=== PATIENT | female | born 1980 | race Caucasian/White ===

== ENCOUNTER 2018-06-24 04:27 | Emergency (ER) | payer OTHER ==
[~2018-06-24] VITALS: Ht 170.2 cm; Wt 97.7 kg
[2018-06-24 04:45] LABS: GLUCOSE,POINT OF CARE > 600 MG/DL (70-110)
[2018-06-24] MEDS ORDERED: AMLO2.5T4 PO (04:45)
[2018-06-24] MEDS ORDERED: FURO40I IM (04:45)
[2018-06-24] MEDS ORDERED: LISI-660 PO (04:45)
[2018-06-24] MEDS ORDERED: INSULIN SQ (04:45)
[2018-06-24 05:07] LABS: BASOPHILS % (AUTO) 1.2 % (0.0-2.0); EOSINOPHILS % (AUTO) 1.2 % (1.0-6.0); HEMATOCRIT 42.3 % (36-46); HEMOGLOBIN 14.9 g/dL (12.0-16.0); LYMPHOCYTES # (AUTO) 2.3 K/uL (1.0-4.8); LYMPHOCYTES % (AUTO) 26.5 % (22.0-44.0); MEAN CORPUSCULAR HEMOGLOBIN 31.1 pg (26.0-34.0); MEAN CORPUSCULAR HGB CONC 35.2 G/dL (31.0-37.0); MEAN CORPUSCULAR VOLUME 88 fL (80-100); MONOCYTES # (AUTO) 0.6 K/uL (0.1-1.0); MONOCYTES % (AUTO) 6.6 % (2.0-9.0); NEUTROPHILS # (AUTO) 5.5 K/uL (1.8-7.7); NEUTROPHILS % (AUTO) 64.5 % (40.0-70.0); PLATELET COUNT (AUTO) 466 K/uL (150-450); RED BLOOD CELL COUNT(AUTO) 4.78 MIL/uL (4.00-5.20); RED CELL DISTRIBUTION WIDTH 12.4 % (11.5-14.5)
[2018-06-24 05:29] LABS: ALBUMIN 2.6 g/dL (3.4-5.0); ALKALINE PHOSPHATASE 143 U/L (46-116); ANION GAP 7 mmol/L (8-16); BILIRUBIN,TOTAL 0.3 mg/dL (0.1-1.0); CALCIUM, TOTAL 8.8 mg/dL (8.8-10.5); CARBON DIOXIDE 27 mmol/L (22-29); CHLORIDE 93 mmol/L (98-107); CREATININE 1.68 mg/dL (0.60-1.30); GLOMERULAR FILTR. RATE CALC 34 mL/min (>60); HCG,QUANTITATIVE 58 mIU/mL (0-6); POTASSIUM 3.6 mmol/L (3.5-5.1); SODIUM SERUM 127 mmol/L (136-145); TOTAL PROTEIN, SERUM 7.4 g/dL (6.4-8.2); UREA NITROGEN, BLOOD 32 mg/dL (7-18)
[2018-06-24] MEDS ORDERED: SODIUM CHLORIDE 0.9% 1,000 ML IV ONE (05:30)
[2018-06-24 05:31] LABS: GLUCOSE,RANDOM 712 mg/dL (70-110)
[2018-06-24] MEDS ORDERED: INSULIN REGULAR, HUMAN 100 UNITS/ML IVP ONE (05:45)
[2018-06-24 05:52] LABS: ASPARTATE AMINOTRANSFERASE 32 U/L (15-37)
[2018-06-24 06:11] LABS: ALANINE AMINOTRANSFERASE 28 U/L (12-78)
[2018-06-24 06:44] VITALS: BP 145/86
[2018-06-24 07:43] LABS: AMPHET/METH SCREEN,URINE NEGATIVE (NEGATIVE); BARBITURATE SCREEN, URINE NEGATIVE (NEGATIVE); BENZODIAZEPINES SCREEN,URINE NEGATIVE (NEGATIVE); CANNABINOID SCREEN,URINE NEGATIVE (NEGATIVE); COCAINE SCREEN,URINE NEGATIVE (NEGATIVE); METHADONE SCREEN, URINE NEGATIVE (NEGATIVE); OPIATE SCREEN,URINE NEGATIVE (NEGATIVE)
[2018-06-24 07:50] LABS: PHENCYCLIDINE SCREEN,URINE NEGATIVE (NEGATIVE)
[2018-06-24 08:04] LABS: GLUCOSE,POINT OF CARE 403 MG/DL (70-110)
[2018-06-24 10:10] LABS: GLUCOSE,POINT OF CARE 385 MG/DL (70-110)
== END 2018-06-24 12:29 | disposition home or self-care (01) ==
LOC: EMS 04:27
DX: E11.65 Type 2 diabetes mellitus with hyperglycemia (principal); I12.9 Hypertensive chronic kidney disease with stage 1 through stage 4 chronic kidney disease, or unspecified chronic kidney disease; E11.22 Type 2 diabetes mellitus with diabetic chronic kidney disease; N18.9 Chronic kidney disease, unspecified; O20.0 Threatened abortion; Z79.4 Long term (current) use of insulin; Z3A.01 Less than 8 weeks gestation of pregnancy
CPT/HCPCS: 36415; 71045; 76801; 76817; 80053; 80307; 82009; 82962; 84484; 84702; 85025; 86901; 93005; 96361; 96374; 99285; G0480; J1815; J7030

== ENCOUNTER 2019-01-07 12:50 | Inpatient (IN) | payer OTHER ==
[2019-01-07] VITALS (12 sets, daily range): BP systolic 127–191; BP diastolic 79–101
[~2019-01-07] VITALS: Ht 167.6 cm; Wt 116.4 kg
[~2019-01-07 12:50] MED LIST: AMLO2.5T4 PO; FURO40I IM; INSULIN SQ; LISI-660 PO
[2019-01-07] MEDS ORDERED: NPH,100I SQ (12:59)
[2019-01-07] MEDS ORDERED: HUM10VIA SQ (12:59)
[2019-01-07] MEDS ORDERED: KETOROLAC TROMETHAMINE 30 MG/ML VIAL IVP ONE (13:45)
[2019-01-07] MEDS ORDERED: ONDANSETRON HCL 4 MG/2 ML VIAL IVP ONE (13:45)
[2019-01-07] MEDS ORDERED: SODIUM CHLORIDE 0.9% 1,000 ML IV ONE (13:45)
[2019-01-07 14:05] LABS: BASOPHILS % (AUTO) 1.5 % (0.0-2.0); HEMATOCRIT 39.1 % (36-46); HEMOGLOBIN 12.9 g/dL (12.0-16.0); LYMPHOCYTES # (AUTO) 2.3 K/uL (1.0-4.8); LYMPHOCYTES % (AUTO) 37.7 % (22.0-44.0); MEAN CORPUSCULAR HEMOGLOBIN 28.6 pg (26.0-34.0); MEAN CORPUSCULAR HGB CONC 33.1 G/dL (31.0-37.0); MEAN CORPUSCULAR VOLUME 87 fL (80-100); MONOCYTES # (AUTO) 0.5 K/uL (0.1-1.0); MONOCYTES % (AUTO) 7.9 % (2.0-9.0); NEUTROPHILS # (AUTO) 3.1 K/uL (1.8-7.7); NEUTROPHILS % (AUTO) 50.9 % (40.0-70.0); PLATELET COUNT (AUTO) 402 K/uL (150-450); RED BLOOD CELL COUNT(AUTO) 4.52 MIL/uL (4.00-5.20); RED CELL DISTRIBUTION WIDTH 12.8 % (11.5-14.5)
[2019-01-07 14:18] LABS: INR 0.9 (0.9-1.1); PROTHROMBIN TIME 9.1 SEC (9.4-11.6)
[2019-01-07 14:24] LABS: B-TYPE NATRIURETIC PEPTIDE 270 pg/mL (0-100)
[2019-01-07 14:41] LABS: ALANINE AMINOTRANSFERASE 30 U/L (12-78); ALBUMIN 2.4 g/dL (3.4-5.0); ALKALINE PHOSPHATASE 106 U/L (46-116); ANION GAP 13 mmol/L (8-16); ASPARTATE AMINOTRANSFERASE 37 U/L (15-37); BILIRUBIN,TOTAL 0.3 mg/dL (0.1-1.0); CALCIUM, TOTAL 9.8 mg/dL (8.8-10.5); CARBON DIOXIDE 24 mmol/L (22-29); CHLORIDE 98 mmol/L (98-107); CREATINE KINASE, TOTAL ONLY 174 U/L (26-192); CREATININE 1.62 mg/dL (0.60-1.30); GLOMERULAR FILTR. RATE CALC 35 mL/min (>60); HCG,QUANTITATIVE < 1 mIU/mL (0-6); POTASSIUM 4.3 mmol/L (3.5-5.1); SODIUM SERUM 135 mmol/L (136-145); TOTAL PROTEIN, SERUM 7.2 g/dL (6.4-8.2); UREA NITROGEN, BLOOD 34 mg/dL (7-18)
[2019-01-07 14:45] LABS: GLUCOSE,RANDOM 422 mg/dL (70-110)
[2019-01-07] MEDS ORDERED: NITROGLYCERIN 2% (1 GM=INCH) PACKET TP ONE (14:45)
[2019-01-07] MEDS ORDERED: ASPIRIN 325 MG TABLET PO ONE (14:45)
[2019-01-07] MEDS ORDERED: HEPARIN SODIUM 25000 UNITS/D5W 250 ML IV PRN ×2 (15:01→15:15)
[2019-01-07] MEDS ORDERED: HEPARIN SODIUM,PORCINE 5,000 UNITS/ML VIAL ONE (15:04)
[2019-01-07] MEDS ORDERED: HEPARIN SODIUM,PORCINE 5,000 UNITS/ML VIAL IVP PRN ×2 (15:15)
[2019-01-07] MEDS ORDERED: HEPARIN SODIUM,PORCINE 5,000 UNITS/ML VIAL IVP ONE ×2 (15:15→15:45)
[2019-01-07] MEDS ORDERED: IOHEXOL 300 MG/ML 150 ML VIAL ONE (15:25)
[2019-01-07] MEDS ORDERED: LIDOCAINE/PF 1% 30 ML VIAL ONE (15:25)
[2019-01-07] MEDS ORDERED: SODIUM BICARBONATE 50 MEQ/50 ML VIAL ONE (15:25)
[2019-01-07] MEDS ORDERED: HydrALAZINE HCL 20 MG/ML VIAL ONE (15:26)
[2019-01-07] MEDS ORDERED: NITROGLYCERIN 50 MG/D5% WATER 250 ML ONE (15:26)
[2019-01-07] MEDS ORDERED: VERAPAMIL HCL 2.5 MG/ML 2 ML VIAL ONE (15:26)
[2019-01-07] MEDS ORDERED: MIDAZOLAM HCL 2 MG/2 ML VIAL ONE (15:35)
[2019-01-07] MEDS ORDERED: FentaNYL CITRATE-PF 100 MCG/2 ML VIAL ONE (15:35)
[2019-01-07] MEDS ORDERED: HEPARIN SODIUM 1000 UNITS/NS 1,000 ML IARTER ONE (15:37)
[2019-01-07] MEDS ORDERED: SODIUM CHLORIDE 0.9% 500 ML IV ONE (15:37)
[2019-01-07] MEDS ORDERED: NITROGLYCERIN 50 MG/D5% WATER 250 ML IV PRN (15:39)
[2019-01-07] MEDS ORDERED: IOHEXOL 300 MG/ML 50 ML VIAL ONE (15:42)
[2019-01-07] MEDS ORDERED: IOHEXOL 300 MG/ML 100 ML VIAL ONE (15:42)
[2019-01-07] MEDS ORDERED: HydrALAZINE HCL 20 MG/ML VIAL IVP ONE (15:45)
[2019-01-07] MEDS ORDERED: LIDOCAINE 1% 30 ML/SOD BICARB 8.4% 4 ML SQ ONE (15:45)
[2019-01-07] MEDS ORDERED: MIDAZOLAM HCL 2 MG/2 ML VIAL IVP ONE (15:45)
[2019-01-07] MEDS ORDERED: IOHEXOL 300 MG/ML 150 ML VIAL IARTER ONE (15:45)
[2019-01-07] MEDS ORDERED: FentaNYL CITRATE-PF 100 MCG/2 ML VIAL IVP ONE (15:45)
[2019-01-07] MEDS ORDERED: HEPARIN SODIUM 1000 UNITS/NS 500 ML ONE (15:51)
[2019-01-07] MEDS ORDERED: IOHEXOL 300 MG/ML 50 ML VIAL IARTER ONE (16:15)
[2019-01-07] MEDS ORDERED: IOHEXOL 300 MG/ML 100 ML VIAL IARTER ONE (16:15)
[2019-01-07] MEDS ORDERED: TICAGRELOR 90 MG TABLET PO ONE (16:30)
[2019-01-07] MEDS ORDERED: TICAGRELOR 90 MG TABLET ONE (16:36)
[2019-01-07] MEDS ORDERED: DEXTROSE 50%-WATER 25 GM/50 ML SYRINGE IVP PRN (18:15)
[2019-01-07] MEDS: INSULIN LISPRO 100 UNITS/ML SQ PRN ×2 (18:34→21:48)
[2019-01-07 21:30] LABS: GLUCOSE,POINT OF CARE 292 MG/DL (70-110)
[2019-01-07 21:30] LABS: GLUCOSE,POINT OF CARE 303 MG/DL (70-110)
[2019-01-07] MEDS: INSULIN NPH, HUMAN ISOPHANE 100 UNITS/ML SQ SCH (21:50)
[2019-01-07] MEDS ORDERED: HYDROCODONE/ACETAMINOPHEN 5-325 MG TABLET PO PRN (22:45)
[2019-01-07] MEDS ORDERED: MORPHINE SULFATE 2 MG/ML SYRINGE IVP PRN (22:45)
[2019-01-07] MEDS ORDERED: ZOLPIDEM TARTRATE 5 MG TABLET PO PRN (22:45)
[2019-01-07] MEDS ORDERED: IPRATROPIUM BROMIDE 0.5 MG/2.5 ML NEB SOLUTION NEB PRN (22:45)
[2019-01-07] MEDS ORDERED: BISACODYL 10 MG RECTAL RECTAL SUPPOSITORY PR PRN (22:45)
[2019-01-07] MEDS ORDERED: MAGNESIUM HYDROXIDE SUSPENSION 30 ML UDCUP PO PRN (22:45)
[2019-01-07] MEDS ORDERED: ONDANSETRON HCL 4 MG/2 ML VIAL IVP PRN (22:45)
[2019-01-07] MEDS ORDERED: ALBUTEROL SULFATE 2.5 MG/0.5 ML NEB SOLUTION NEB PRN (22:45)
[2019-01-07 23:01] LABS: APPEARANCE,URINE CLOUDY (CLEAR); BILIRUBIN,URINE NEGATIVE (NEGATIVE); GLUCOSE, URINE (UA) >=1000 mg/dL (NEGATIVE); KETONES,URINE NEGATIVE (NEGATIVE); LEUKOCYTE ESTERASE ,URINE SMALL (NEGATIVE); NITRATE,URINE NEGATIVE (NEGATIVE); OCCULT BLOOD,URINE LARGE (NEGATIVE); PROTEIN,URINE SEE CONFIRM (NEGATIVE); UROBILINOGEN,URINE 0.2 mg/dL (<=1.0)
[2019-01-07 23:11] LABS: WBC,URINE 26-50 /HPF (0-5)
[2019-01-07 23:12] LABS: BACTERIA,URINE Many /HPF (None Seen); SQUAMOUS EPITHELIAL CELL,UR Few /LPF (None Seen); SULFOSALICYLIC ACID,URINE 4+ (Negative)
[2019-01-08] VITALS (10 sets, daily range): BP systolic 108–148; BP diastolic 56–86
[2019-01-08] MEDS ORDERED: NPH,100I SQ (01:15)
[2019-01-08 05:44] LABS: CALCIUM, TOTAL 9.2 mg/dL (8.8-10.5); CREATININE 1.64 mg/dL (0.60-1.30); POTASSIUM 4.1 mmol/L (3.5-5.1)
[2019-01-08] MEDS ORDERED: INSULIN HUMAN NPH-REGULAR 70/30 100 UNITS/ML SQ SCH ×2 (06:30→21:00)
[2019-01-08] MEDS: ASPIRIN 81 MG CHEWABLE TABLET PO SCH (08:04)
[2019-01-08] MEDS: DOCUSATE SODIUM 100 MG CAPSULE PO SCH ×2 (08:04→20:43)
[2019-01-08] MEDS: TICAGRELOR 90 MG TABLET PO SCH ×2 (08:04→20:44)
[2019-01-08] MEDS: LISINOPRIL 5 MG TABLET PO SCH (08:04)
[2019-01-08] MEDS: ACETAMINOPHEN 325 MG TABLET PO PRN (08:05)
[2019-01-08] MEDS: INSULIN NPH, HUMAN ISOPHANE 100 UNITS/ML SQ SCH (08:20)
[2019-01-08] MEDS: INSULIN LISPRO 100 UNITS/ML SQ PRN ×4 (08:25→21:16)
[2019-01-08 12:05] LABS: GLUCOSE,POINT OF CARE 278 MG/DL (70-110)
[2019-01-08 17:39] LABS: GLUCOSE,POINT OF CARE 227 MG/DL (70-110)
[2019-01-08] MEDS: METOPROLOL TARTRATE 25 MG TABLET PO SCH (20:43)
[2019-01-08 21:19] LABS: GLUCOSE,POINT OF CARE 264 MG/DL (70-110)
[2019-01-09] VITALS: BP 127/58
[2019-01-09 04:00] VITALS: BP 136/60
[2019-01-09 05:43] LABS: CALCIUM, TOTAL 9.1 mg/dL (8.8-10.5); CREATININE 2.03 mg/dL (0.60-1.30); POTASSIUM 4.1 mmol/L (3.5-5.1)
[2019-01-09 06:49] LABS: GLUCOSE,POINT OF CARE 250 MG/DL (70-110)
[2019-01-09] MEDS: INSULIN NPH, HUMAN ISOPHANE 100 UNITS/ML SQ SCH ×2 (07:23→16:55)
[2019-01-09] MEDS: ACETAMINOPHEN 325 MG TABLET PO PRN (07:29)
[2019-01-09 08:00] VITALS: BP 119/76
[2019-01-09] MEDS: DOCUSATE SODIUM 100 MG CAPSULE PO SCH (09:16)
[2019-01-09] MEDS: METOPROLOL TARTRATE 25 MG TABLET PO SCH (09:16)
[2019-01-09] MEDS: LISINOPRIL 5 MG TABLET PO SCH (09:17)
[2019-01-09] MEDS: ASPIRIN 81 MG CHEWABLE TABLET PO SCH (09:17)
[2019-01-09] MEDS: TICAGRELOR 90 MG TABLET PO SCH (09:17)
[2019-01-09 12:00] VITALS: BP 121/59
[2019-01-09] MEDS: INSULIN LISPRO 100 UNITS/ML SQ PRN ×2 (12:01→18:01)
[2019-01-09] MEDS ORDERED: SODIUM CHLORIDE 0.9% 1,000 ML IV SCH (14:00)
[2019-01-09 16:00] VITALS: BP 130/65
[2019-01-09 16:45] LABS: GLUCOSE,POINT OF CARE 281 MG/DL (70-110)
[2019-01-09 23:30] LABS: GLUCOSE,POINT OF CARE 210 MG/DL (70-110)
[2019-01-09 23:30] LABS: GLUCOSE,POINT OF CARE 221 MG/DL (70-110)
== END 2019-01-09 18:40 | disposition short-term general hospital (02) | DRG 247 ==
LOC: EMS 12:51 → ICU 15:13 → ICUN 01-08 10:20
PROVIDERS: ADMIT Hospitalist; ATTEND Hospitalist
PROC: 4A023N7 Measurement of Cardiac Sampling and Pressure, Left Heart, Percutaneous Approach (ICD-10-PCS; principal; 2019-01-07)
PROC: 027034Z Dilation of Coronary Artery, One Artery with Drug-eluting Intraluminal Device, Percutaneous Approach (ICD-10-PCS; 2019-01-07)
PROC: B2111ZZ Fluoroscopy of Multiple Coronary Arteries using Low Osmolar Contrast (ICD-10-PCS; 2019-01-07)
PROC: B41F1ZZ Fluoroscopy of Right Lower Extremity Arteries using Low Osmolar Contrast (ICD-10-PCS; 2019-01-07)
DX: I21.11 ST elevation (STEMI) myocardial infarction involving right coronary artery (principal); Z68.41 Body mass index [BMI] 40.0-44.9, adult; E10.22 Type 1 diabetes mellitus with diabetic chronic kidney disease; E66.01 Morbid (severe) obesity due to excess calories; E10.319 Type 1 diabetes mellitus with unspecified diabetic retinopathy without macular edema; E10.40 Type 1 diabetes mellitus with diabetic neuropathy, unspecified; N18.9 Chronic kidney disease, unspecified; I12.9 Hypertensive chronic kidney disease with stage 1 through stage 4 chronic kidney disease, or unspecified chronic kidney disease; I25.10 Atherosclerotic heart disease of native coronary artery without angina pectoris; Z82.49 Family history of ischemic heart disease and other diseases of the circulatory system; Z79.899 Other long term (current) drug therapy; Z79.4 Long term (current) use of insulin
CPT/HCPCS: 83735; 87081; 87086; 92920; 92928; 93005; 93306; 96361; 96374; 96375; 99291; G0378; J0360; J1644; J1815; J1885; J2250; J2405; J3010; J3490; J7030; Q9967

== ENCOUNTER 2020-06-27 10:16 | Emergency (ER) | payer OTHER ==
[~2020-06-27] VITALS: Ht 170.2 cm; Wt 115.9 kg
[~2020-06-27 10:16] MED LIST changes: -AMLO2.5T4 PO; +AMLO2.5T96 PO; -FURO40I IM; -INSULIN SQ; +NPH,100I SQ
[2020-06-27] MEDS ORDERED: APIX5TAB PO (10:43)
[2020-06-27] MEDS ORDERED: ATOR10TA84 PO (10:43)
[2020-06-27 12:00] VITALS: BP 145/90
== END 2020-06-27 12:15 | disposition home or self-care (01) ==
LOC: EMS 10:17
DX: S06.0X9A Concussion with loss of consciousness of unspecified duration, initial encounter (principal); I10 Essential (primary) hypertension; E11.9 Type 2 diabetes mellitus without complications; Z79.4 Long term (current) use of insulin; Z79.899 Other long term (current) drug therapy; Y04.2XXA Assault by strike against or bumped into by another person, initial encounter; Y93.89 Activity, other specified; Y92.89 Other specified places as the place of occurrence of the external cause; Y99.8 Other external cause status
CPT/HCPCS: 70450